=== PATIENT | male | born 1975 | race Caucasian/White ===

== ENCOUNTER 2019-02-14 16:51 | Emergency (ER) | payer OTHER ==
[~2019-02-14] VITALS: Ht 177.8 cm; Wt 88.5 kg
--- OUTSIDE RECORDS SUMMARY | ~2019-02-14 | XMS | Encounter Summary ---
Demographics + + + | Address | [address] | | | [place] [address] | + + + | Home Phone | | + + + | Preferred Language | Unknown | + + + | Marital Status | | + + + | Sikhism Affiliation | Unknown | + + + | Race | White | + + + | Ethnic Group | Not or | + + + Author + + + | Author | [facility] | + + + | Organization | [facility] | + + + | Address | Unknown | + + + | Phone | Unavailable | + + + Support + + +---------+ + | Name | Relationship | Address | Phone | + + +---------+ + | Sadia Harp | ECON | Unknown | | + + +---------+ + Care Team Providers + +------+ + | Care Educational Therapist Name | Role | Phone | + +------+ + | Syed Lombardo MD | PCP | | + +------+ + Encounter Details +--------+ + + + + | Date | Type | Department | Care Team | Description | +--------+ + + + + | 10/13/ | Documentati | Otolaryngology | Otology, Ent 3181 | | | 2016 | on | Otology Services at | [facility] | | | | | PPV [address] [facility] | Road [place], [place] | | | | | [facility] [address] | [address] | | | | | Mailcode: PV01 | | | | | | Physician's Reema | | | | | | [place], [place] | | | | | | [address] | | | | | | [phone] | | | +--------+ + + + [...] filedocumented as of this encounter Visit Diagnoses Not on filedocumented in this encounter"
--- OUTSIDE RECORDS SUMMARY | ~2019-02-14 | XMS | Encounter Summary ---
Demographics + + + | Address | [address] | | | [place] [address] | + + + | Home Phone | | + + + | Preferred Language | Unknown | + + + | Marital Status | | + + + | Mosque Affiliation | Unknown | + + + | Race | White | + + + | Ethnic Group | Not or | + + + Author + + + | Author | [facility] | + + + | Organization | [facility] | + + + | Address | Unknown | + + + | Phone | Unavailable | + + + Support + + +---------+ + | Name | Relationship | Address | Phone | + + +---------+ + | Sadia Harp | ECON | Unknown | | + + +---------+ + Care Team Providers + +------+ + | Care Cake Wringer Name | Role | Phone | + [...] | | | | | JESUS, | [place], [place] | | | | | | [place] [address] | [address] | | | | | | Phone: | Phone: | | | | | | [phone] | [phone] | | | | | | Fax: | Fax: | | | | | | [phone] | [phone] | +--------+--------+ + + + + Encounter [...] | PPV [address] | [facility] | right ear (Primary | | | | [facility] | [place], [place] | Dx) | | | | Mailcode: PV01 | [address] | | | | | Physician's Pavilion | [phone] | | | | | [place], [place] | | | | | | [address] | | | | | | [phone] | | | +--------+---------+ + + + [...] of the num bers below or through [employer]. Your questions can best be answered during business hours at [phone], but you can always reach the [facility] pest control operator at [phone] to contac t our on-call team. We look forward to taking care of you in the future. Dr. Yobany Matthews MD, Director Leslye Escobar, VIDAL Grady MA documented in this encounter Progress Notes Isael Burgess MD - 01/01/2016 10:34 AM PDT Division of Otology, Neurotology, and Skull Base Surgery Department of Otolaryngology/Head and Neck Surgery [facility] Patient: Scotty Harp Referring Provider: Wilfrid Gill [...] him some allergy medications. He saw an arboriculture teacher on 08/18/15 which confirmed he aring loss [...] telephone and finds it difficult to localize [place]. He inquired about usage of Viagra [...] Otolaryngology Head and Neck Surgery PGY5 pager [phone] RESIDENT ATTESTATION This patient was seen in [...] Program Department of Otolaryngology-Head and Neck Surgery [address], [address] [address] tel: [phone] fax: [phone] [email or web address] documented in this encounter Plan of Treatment Not on filedocumented as of this encounter Visit Diagnoses + + | Diagnosis | + + | Sensorineural hearing loss of right ear - Primary | + + documented in this encounter
--- OUTSIDE RECORDS SUMMARY | ~2019-02-14 | XMS | Encounter Summary ---
Demographics + + + | Address | [address] | | | [place] [address] | + + + | Home Phone | | + + + | Preferred Language | Unknown | + + + | Marital Status | | + + + | Sabianism Affiliation | Unknown | + + + [...] Team Providers + +------+ + | Care Laboratory Chemical Assistant Name | Role | Phone | + [...] | | | | | JESUS, | [place], [place] | | | | | | [place] [address] | [address] | | | | | | Phone: | Phone: | | | | | | [phone] | [phone] | | | | | | Fax: | Fax: | | | | | | [phone] | [phone] | +--------+--------+ + + + + Encounter [...] | PPV [address] | [facility] | right ear (Primary | | | | [facility] | [place], [place] | Dx) | | | | Mailcode: PV01 | [address] | | | | | Physician's Pavilion | [phone] | | | | | [place], [place] | | | | | | [address] | | | | | | [phone] | | | +--------+---------+ + + + [...] of the num bers below or through [employer]. Your questions can best be answered during business hours at [phone], but you can always reach the [facility] electrode cleaning machine operator at [phone] to contac t our on-call team. We look forward to taking care of you in the future. Dr. Yobany Matthews MD, Director Leslye Escobar, VIDAL Grady MA documented in this encounter Progress Notes Isael Burgess MD - 01/01/2016 10:34 AM PDT Division of Otology, Neurotology, and Skull Base Surgery Department of Otolaryngology/Head and Neck Surgery [facility] Patient: Scotty Harp Referring Provider: Wilfrid [...] him some allergy medications. He saw an emergency vehicle driver on 08/18/15 which confirmed he aring loss [...] Otolaryngology Head and Neck Surgery PGY5 pager [phone] RESIDENT ATTESTATION This patient was seen in [...] Program Department of Otolaryngology-Head and Neck Surgery [address], [address] [address] tel: [phone] fax: [phone] [email or web address] documented in this encounter Plan of Treatment Not on filedocumented as of this encounter Visit Diagnoses + + | Diagnosis | + + | Sensorineural hearing loss of right ear - Primary | + + documented in this encounter
--- OUTSIDE RECORDS SUMMARY | ~2019-02-14 | XMS | Encounter Summary ---
Demographics + + + | Address | [address] | | | [place] [address] | + + + | Home Phone | | + + + | Preferred Language | Unknown | + + + | Marital Status | | + + + | Pentecostalism Affiliation | Unknown | + + + | Race | White | + + + | Ethnic Group | Not or | + + + Author + + + | Author | [facility] | + + + | Organization | [facility] | + + + | Address | Unknown | + + + | Phone | Unavailable | + + + Support + + +---------+ + | Name | Relationship | Address | Phone | + + +---------+ + | Sadia Harp | ECON | Unknown | | + + +---------+ + Care Team Providers + +------+ + | Care Mechanic Insulator Name | Role | Phone | + [...] W | | | | | | [facility] | | | | | | Road Mailcode: | | | | | | [address] [place] [address] | | | | | | [facility] | | | | | | [place], [place] | | | | | | [address] | | | | | | [phone] | | | +--------+ + + + [...]
--- OUTSIDE RECORDS SUMMARY | ~2019-02-14 | XMS | Encounter Summary ---
Demographics + + + | Address | [address] | | | [place] [address] | + + + | Home Phone | | + + + | Preferred Language | Unknown | + + + | Marital Status | | + + + | Gnosticist Affiliation | Unknown | + + + | Race | White | + + + | Ethnic Group | Not or | + + + Author + + + | Author | [facility] | + + + | Organization | [facility] | + + + | Address | Unknown | + + + | Phone | Unavailable | + + + Support + + +---------+ + | Name | Relationship | Address | Phone | + + +---------+ + | Sadia Harp | ECON | Unknown | | + + +---------+ + Care Team Providers + +------+ + | Care Wafer Production Lead Worker Name | Role | Phone | + [...] Mailcode: | | | | | | [address] [place] [address] | | | | | | [facility] | | | | | | [place], [place] | | | | | | [address] | | | | | | [phone] | | | +--------+ + + + [...]
--- OUTSIDE RECORDS SUMMARY | ~2019-02-14 | XMS | Encounter Summary ---
Demographics + + + | Address | [address] | | | [place] [address] | + + + | Home Phone | | + + + | Preferred Language | Unknown | + + + | Marital Status | | + + + | Oriental Orthodox Affiliation | Unknown | + + + | Race | White | + + + | Ethnic Group | Not or | + + + Author + + + | Author | [facility] | + + + | Organization | [facility] | + + + | Address | Unknown | + + + | Phone | Unavailable | + + + Support + + +---------+ + | Name | Relationship | Address | Phone | + + +---------+ + | Sadia Harp | ECON | Unknown | | + + +---------+ + Care Team Providers + +------+ + | Care Rubber Splicer Name | Role | Phone | + +------+ + | Syed Lombardo MD | PCP | | + +------+ + Encounter Details +--------+ + + + + | Date | Type | Department | Care Team | Description | +--------+ + + + + | 09/23/ | Documentati | Otolaryngology | Otology, Ent 3181 | | | 2015 | on | Otology Services at | [facility] | | | | | [address] [facility] | Road [place], [place] | | | | | [facility] [address] | [address] | | | | | Mailcode: PV01 | | | | | | Physician's Reema | | | | | | [place], [place] | | | | | | [address] | | | | | | [phone] | | | +--------+ + + + [...]
--- OUTSIDE RECORDS SUMMARY | ~2019-02-14 | XMS | Encounter Summary ---
Demographics + + + | Address | [address] | | | [place] [address] | + + + | Home Phone | | + + + | Preferred Language | Unknown | + + + | Marital Status | | + + + | Advent Affiliation | Unknown | + + + | Race | White | + + + | Ethnic Group | Not or | + + + Author + + + | Author | [facility] | + + + | Organization | [facility] | + + + | Address | Unknown | + + + | Phone | Unavailable | + + + Support + + +---------+ + | Name | Relationship | Address | Phone | + + +---------+ + | Sadia Harp | ECON | Unknown | | + + +---------+ + Care Team Providers + +------+ + | Care Processing Analyst Name | Role | Phone | + +------+ + | Syed Lombardo MD | PCP | | + +------+ + Reason for Visit + + + | Reason | Comments | + + + | HL - Hearing loss | | + + + Encounter Details +--------+ + + + + | Date | Type | Department | Care Team | Description | +--------+ + + + + | 12/31/ | Diagnostic | Otolaryngology | Alberta Britton, | HL - Hearing loss | | 2016 | Visit | Audiology Services | [facility] [address] | | | | | at PPV [address] | [facility] | | | | | [facility] | [place], [place] | | | | | Mailcode: PV01 | [address] | | | | | Physician's Reema | [phone] | | | | | [place], [place] | | | | | | [address] | | | | | | [phone] | | | +--------+ + + + [...] + + documented as of this encounter Progress Notes Alberta Gallardo, CCC-A - 01/01/2016 10:[address] [facility] ENT Audiology Clinic NAME: Scotty Harp Date of : 1975 MR#: [id number] Primary Care Provider: Syed Lombardo MD Referral Source: Wilfrid Gill MD [facility] [address] [facility] [address] [place] [address] [place]: Sisters Date of Service: 01/01/2016 OTOLOGY CLINIC Scotty Harp, 40 y.o., was seen for a comprehensive audiological evaluation today as part of Dr. Matthews's otology clinic. Please see same day otology note for case history. Audiologic Results: OTOSCOPY (used to evaluate the outer ear): Right ear: Clear external auditory canal with visible tympanic membrane Left ear: Clear external auditory canal with visible tympanic membrane TYMPANOMETRY (used to evaluate middle ear function): Right ear: Ear canal volume, middle ear pressure and compliance all within normal limits Left ear: Ear canal volume, middle ear pressure and compliance all within normal limits AUDIOMETRY (used to assess condition of hearing): Zelalem hearing sensitivity was evaluated using routine audiometry with insert earphones. Se mendez conditioned easily to the task and his responses were consistent and considered reliable. Pure-tone air and bone conduction results revealed: Right Ear:Normal hearing from 250-500 Hz sloping from a moderate to severe hearing loss f rom 750-8000 Hz. A speech entry level receptionist threshold was obtained at 25 dB HL and is in good agree ment with responses to pure-tone stimuli. Word recognition ability was 40% when words were presented at a comfortable level of 70 dB HL. Left Ear: Normal hearing sensitivity. A speech entry level receptionist threshold was obtained at 5 dB HL and is in good agreement with responses to pure-tone stimuli. Word recognition ability w as 100% when words were presented at a comfortable level of 45 dB HL. Please see SmartForm audiogram for details. Please see otology note for appointment detail including treatment/management and recommend ations. Koby AUGUSTIN, COLEEN-A OTOLARYNGOLOGY AUDIOLOGY SERVICES AT [address] Mailcode: Pv01 [place] [address] documented in this encounter Plan of Treatment Not on filedocumented as of this encounter Procedures + +--------+ + + + | Procedure Name | Priori | Date/Time | Associated Diagnosis | Comments | | | ty | | | | + +--------+ + + + | [place] TYMPANOMETRY | Routin | 01/01/2016 | Sensory hearing | | | | e | 12:49 PM | loss, unilateral | | | | | PDT | | | + +--------+ + + + | [place] COMPREHENSIVE | Routin | 01/01/2016 | Sensory hearing | | | HEARING TEST | e | 12:49 PM | loss, unilateral | | | | | PDT | | | + +--------+ + + + documented in this encounter Visit Diagnoses + + | Diagnosis | + + | Sensory hearing loss, unilateral - Primary | + + documented in this encounter"
--- OUTSIDE RECORDS SUMMARY | ~2019-02-14 | XMS | Encounter Summary ---
Demographics + + + | Address | [address] | | | [place] [address] | + + + | Home Phone | | + + + | Preferred Language | Unknown | + + + | Marital Status | | + + + | Advent Affiliation | Unknown | + + + | Race | White | + + + | Ethnic Group | Not or | + + + Author + + + | Author | [facility] | + + + | Organization | [facility] | + + + | Address | Unknown | + + + | Phone | Unavailable | + + + Support + + +---------+ + | Name | Relationship | Address | Phone | + + +---------+ + | Sadia Harp | ECON | Unknown | | + + +---------+ + Care Team Providers + +------+ + | Care Community Health Nurse Name | Role | Phone | + [...] 2016 | Visit | Audiology Services | [facility] [address] | | | | | at PPV [address] | [facility] | | | | | [facility] | [place], [place] | | | | | Mailcode: PV01 | [address] | | | | | Physician's Reema | [phone] | | | | | [place], [place] | | | | | | [address] | | | | | | [phone] | | | +--------+ + + + [...] Alberta Gallardo, CCC-A - 01/01/2016 10:36 AM [facility] ENT Audiology Clinic NAME: Scotty Harp Date of : 1975 MR#: [id number] Primary Care Provider: Syed Lombardo MD Referral Source: Wilfrid Gill MD [facility] [address] [facility] [address] [place] [address] [place]: Sisters Date of Service: 01/01/2016 OTOLOGY [...] loss f rom 750-8000 Hz. A speech weekend receptionist threshold was obtained at 25 dB HL and is in good agree ment with responses to pure-tone stimuli. Word recognition ability was 40% when words were presented at a comfortable level of 70 dB HL. Left Ear: Normal hearing sensitivity. A speech weekend receptionist threshold was obtained at 5 dB HL and is in good agreement with responses to pure-tone stimuli. Word recognition ability w as 100% when words were presented at a comfortable level of 45 dB HL. Please see SmartForm audiogram for details. Please see otology note for appointment detail including treatment/management and recommend ations. Koby AUGUSTIN, COLEEN-A OTOLARYNGOLOGY AUDIOLOGY SERVICES AT [address] Mailcode: [address] [place] [address] documented in this encounter Plan of Treatment Not on filedocumented as of this encounter Procedures + +--------+ + + + | Procedure Name | Priori | Date/Time | Associated Diagnosis | Comments | | | ty | | | | + +--------+ + + + | [place] TYMPANOMETRY | Routin | 01/01/2016 | Sensory hearing | | | | e | 12:49 PM | loss, unilateral | | | | | PDT | | | + +--------+ + + + | [place] COMPREHENSIVE | Routin | 01/01/2016 | Sensory [...]
--- OUTSIDE RECORDS SUMMARY | ~2019-02-14 | XMS | Encounter Summary ---
Demographics + + + | Address | [address] | | | [place] [address] | + + + | Home Phone | | + + + | Preferred Language | Unknown | + + + | Marital Status | | + + + | Restorationist Affiliation | Unknown | + + + | Race | White | + + + | Ethnic Group | Not or | + + + Author + + + | Author | [facility] | + + + | Organization | [facility] | + + + | Address | Unknown | + + + | Phone | Unavailable | + + + Support + + +---------+ + | Name | Relationship | Address | Phone | + + +---------+ + | Sadia Harp | ECON | Unknown | | + + +---------+ + Care Team Providers + +------+ + | Care Party Director Name | Role | Phone | + [...] | on | Otology Services at | [facility] | | | | | PPV [address] [facility] | Road [place], [place] | | | | | [facility] [address] | [address] | | | | | Mailcode: PV01 | | | | | | Physician's Reema | | | | | | [place], [place] | | | | | | [address] | | | | | | [phone] | | | +--------+ + + + [...]
--- OUTSIDE RECORDS SUMMARY | ~2019-02-14 | XMS | Clinical Summary ---
Demographics + + + | Address | [address] | | | [place] [address] | + + + | Home Phone | | + + + | Preferred Language | Unknown | + + + | Marital Status | | + + + | Catholic Affiliation | Unknown | + + + [...] Team Providers + +------+ + | Care Day Care Attendant Name | Role | Phone | + +------+ + | Syed Lombardo MD | PP | | + +------+ + Source Comments KEESHA is fully live on both [facility] Ambulatory and [facility] InPatient.[facility] Allergies Not on File Medications No known [...] | x | 12-Pre | 8 | [address] | | | | | | sent | | [place], | | | | | | | | [place] | | | | | | | | [address] | | + +--------+ +--------+ + +------+ [...] | 1975 | [phone] | [place] [address] | | | brenda | | | 9 (Home) | | + +--------+ +--------+ + +
--- OUTSIDE RECORDS SUMMARY | ~2019-02-14 | XMS | Clinical Summary ---
Demographics + + + | Address | [address] | | | [place] [address] | + + + | Home Phone | | + + + | Preferred Language | Unknown | + + + | Marital Status | | + + + | Restoration Affiliation | Unknown | + + + [...] Team Providers + +------+ + | Care Die Cleaner Name | Role | Phone | + +------+ + | Syed Lombardo MD | PP | | + +------+ + Source Comments KEESHA is fully live on both [facility] Ambulatory and [facility] InPatient.[facility] Allergies Not on File Medications No [...] | x | 12-Pre | 8 | [address] | | | | | | sent | | [place], | | | | | | | | [place] | | | | | | | | [address] | | + +--------+ +--------+ + +------+ [...] | 1975 | [phone] | [place] [address] | | | brenda | | | 9 (Home) | | + +--------+ +--------+ + +
--- OUTSIDE RECORDS SUMMARY | ~2019-02-14 | XMS | Encounter Summary ---
Demographics + + + | Address | [address] | | | [place] [address] | + + + | Home Phone | | + + + | Preferred Language | Unknown | + + + | Marital Status | | + + + | Taoism Affiliation | Unknown | + + + | Race | White | + + + | Ethnic Group | Not or | + + + Author + + + | Author | [facility] | + + + | Organization | [facility] | + + + | Address | Unknown | + + + | Phone | Unavailable | + + + Support + + +---------+ + | Name | Relationship | Address | Phone | + + +---------+ + | Sadia Harp | ECON | Unknown | | + + +---------+ + Care Team Providers + +------+ + | Care Business Support Associate Name | Role | Phone | + [...] | | | PPV [address] [facility] | Road [place], [place] | | | | | [facility] [address] | [address] | | | | | Mailcode: PV01 | | | | | | Physician's Reema | | | | | | [place], [place] | | | | | | [address] | | | | | | [phone] | | | +--------+ + + + [...]
[2019-02-14] MEDS ORDERED: GLUCOSAMINE1000 MG PO (17:06)
[2019-02-14] MEDS ORDERED: MULTIVITAMINS1 EAC8 PO (17:07)
[2019-02-14] MEDS ORDERED: HYDROCODON-ACE1 EA10 PO (17:56)
[2019-02-14] MEDS ORDERED: KEFLEX500 MG PO (17:56)
[2019-02-14] MEDS ORDERED: IBUPROFEN600 MG PO (17:56)
== END 2019-02-14 18:09 | disposition home or self-care (01) ==
LOC: ED 16:51
PROC: 0XQPXZZ Repair Left Index Finger, External Approach (ICD-10-PCS; principal; 2019-02-14)
DX: S62.631B Displaced fracture of distal phalanx of left index finger, initial encounter for open fracture (principal); S61.311A Laceration without foreign body of left index finger with damage to nail, initial encounter; W23.0XXA Caught, crushed, jammed, or pinched between moving objects, initial encounter
CPT/HCPCS: 12001; 73140; 90471; 90715; 99283-25

== ENCOUNTER 2019-02-16 11:09 | Emergency (ER) | payer OTHER, BC ==
[~2019-02-16] VITALS: Ht 177.8 cm; Wt 88.5 kg
--- OUTSIDE RECORDS SUMMARY | ~2019-02-16 | XMS | Encounter Summary ---
Demographics + + + | Address | [address] | | | [place] [address] | + + + | Home Phone | | + + + | Preferred Language | Unknown | + + + | Marital Status | | + + + | Yazidism Affiliation | Unknown | + + + | Race | White | + + + | Ethnic Group | Not or | + + + Author + + + | Author | [facility] | + + + | Organization | [facility] | + + + | Address | Unknown | + + + | Phone | Unavailable | + + + Support + + +---------+ + | Name | Relationship | Address | Phone | + + +---------+ + | Sadia Harp | ECON | Unknown | | + + +---------+ + Care Team Providers + +------+ + | Care Burr Mill Operator Name | Role | Phone | + +------+ + | Syed Lombardo MD | PCP | | + +------+ + Reason for Visit + + + | Reason | Comments | + + + | Tinnitus | new pt here for tinnitus eval | + + + Consultation (Routine) +--------+--------+ + + + + | Status | Reason | Specialty | Diagnoses / | Referred By | Referred To | | | | | Procedures | Contact | Contact | +--------+--------+ + + + + | Closed | | Otolaryngolog | Diagnoses | Flaiz, | Ent Otology | | | | y | Right side | Wilfrid A, | [address] | | | | | tinnitus - | | [address] | | | | | page 1 of | [place] [address] | | | | | referral | HEAD & NECK | Mailcode: | | | | | Procedures | CLIN[facility] | [address] | | | | | CONSULT TO | [address] | Physician's | | | | | ENT OTOLOGY | [address] | Pavilion | | | | | | [place], | [place], [place] | | | | | | [place] [address] | [address] | | | | | | Phone: | Phone: | | | | | | [phone] | [phone] | | | | | | Fax: | Fax: | | | | | | [phone] | [phone] | +--------+--------+ + + + + Encounter Details +--------+---------+ + + + | Date | Type | Department | Care Team | Description | +--------+---------+ + + + | 12/31/ | Office | Otolaryngology | Alden Matthews Criss, | Sensorineural | | 2016 | Visit | Otology Services at | [address] | hearing loss of | | | | [facility] [address] | [facility] | right ear (Primary | | | | [facility] | [place], [place] | Dx) | | | | Mailcode: PV01 | [address] | | | | | [facility] | [phone] | | | | | [place], [place] | | | | | | [address] | | | | | | [phone] | | | +--------+---------+ + + + Social History + +-------+ +--------+------+ | Tobacco Use | Types | Packs/Day | Years | Date | | | | | Used | | + +-------+ +--------+------+ | Never Smoker | | | | | + +-------+ +--------+------+ + +---+---+---+ | Smokeless Tobacco: | | | | | Never Used | | | | + +---+---+---+ + + +---------+ + | Alcohol Use | Drinks/Week | oz/Week | Comments | + + +---------+ + | Not Asked | 0 Standard drinks | 0.0 | | | | or equivalent | | | + + +---------+ + + + + | Sex Assigned at | Date Recorded | | | | + + + | Not on file | | + + + + + + + | Job Start Date | Occupation | Industry | + + + + | Not on file | Not on file | Not on file | + + + + + + + + | Travel History | Travel Start | Travel End | + + + + + + | No recent travel history available. | + + documented as of this encounter Last Filed Vital Signs + + + + + | Vital Sign | Reading | Time Taken | Comments | + + + + + | Blood Pressure | 120/74 | 01/01/2016 10:30 AM | | | | | PDT | | + + + + + | Pulse | 65 | 01/01/2016 10:30 AM | | | | | PDT | | + + + + + | Temperature | - | - | | + + + + + | Respiratory Rate | - | - | | + + + + + | Oxygen Saturation | - | - | | + + + + + | Inhaled Oxygen | - | - | | | Concentration | | | | + + + + + | Weight | 84.8 kg (187 lb) | 01/01/2016 10:30 AM | | | | | PDT | | + + + + + | Height | 177.8 cm (5' 10") | 01/01/2016 10:30 AM | | | | | PDT | | + + + + + | Body Mass Index | 26.83 | 01/01/2016 10:30 AM | | | | | PDT | | + + + + + documented in this encounter Patient Instructions Patient Instructions Isael Burgess MD - 01/01/2016 11:09 AM PDTYou had a sensorineural hea ring loss on the right side. Your hearing may improve but likely this is going to stabilize. There is no tumor of your 8th nerve on MRI. We have ordered some lab testing to see any particular cause of your hearing loss. We recommend evaluation by audiology to discuss hearing aids 1) traditional right hearing aid 2) CROS hearing aids in both ears Thank you so much for seeking care in the Division of Otology, Neurotology, and Skull Base Surgery. We hope we have been able to help you. If you have any questions about your care, please feel free to contact us at one of the num bers below or through [employer]. Your questions can best be answered during business hours at [phone], but you can always reach the [facility] screw machine set up operator at [phone] to contac t our on-call team. We look forward to taking care of you in the future. Dr. Yobany Matthews MD, Director Leslye Escobar, VIDAL Grady MA documented in this encounter Progress Notes Isael Burgess MD - 01/01/2016 10:34 AM PDT Division of Otology, Neurotology, and Skull Base Surgery Department of Otolaryngology/Head and Neck Surgery [facility] Patient: Scotty Harp Referring Provider: Wilfrid Gill MD Author: Isael Burgess MD Consultation Date: 01/01/2016 REASON FOR VISIT: Right sudden sensorineural hearing loss HISTORY OF PRESENT ILLNESS: Scotty Harp is a 40 y.o. male who was referred to the Otology - Neurotology clinic by Dr. Gill for right sudden sensorineural hearing loss that occurred on 08/10/15. There was a po pping sound accompanied by aural fullness and continuous ringing tinnitus and severe vertigo . He heard some crackling noises and then his hearing as completely gone. His PCP 08/12/15 p rescribed him some allergy medications. He saw an manager customer service on 08/18/15 which confirmed he aring loss and told him to go back to PCP and get ENT referral and prednisone taper. He was treated with prednisone 30 mg on 08/19/15 x 5 days without any significant improvement. He was then seen by an ENT clinic (Ms. Jo RYAN) on 09/09/15 with repeat audio who ordered an d MRI and treated him with another round of prednisone (50 mg taper over 10 days) without an y more than minor subjective improvement. Audiogram was improved - SDS of 20% in right ear a nd improvement of 20-30 dB but still in moderate to severe level. Vertigo has since resolved . He currently uses his left ear to use the telephone and finds it difficult to localize holley nd. He inquired about usage of Viagra as a source of hearing loss but had not used it within a few weeks of losing his hearing. Otologic history: Has no had prior otologic surgery. (no) family history of hearing loss. (no) history of ototoxic medication use. (+) history of noise exposure. Loud equipment but wears hearing protection (-) history of head trauma. PAST MEDICAL HISTORY: History reviewed. No pertinent past medical history. PAST SURGICAL HISTORY: History reviewed. No pertinent past surgical history. ALLERGIES: Not on File MEDICATIONS: No current outpatient prescriptions on file. FAMILY HISTORY: None SOCIAL HISTORY: History Substance Use Topics Smoking status: Never Smoker Smokeless tobacco: Never Used Alcohol Use: Not on file REVIEW OF SYSTEMS: A full 10 point review of systems was completed and is negative, except for the pertinent p ositives and negatives as noted above in the history of present illness. PHYSICAL EXAM: Vitals: Ht 1.778 m (5' 10"), Wt 84.823 kg (187 lb), BP 120/74, Pulse 65, BMI 26.83 kg/(m^2) . Constitutional: Non-toxic, no apparent distress. Face: Normal facial contour. Eyes: Extraocular movements intact. Sclera non-icteric. Ears: Examined under binocular microscopic visualization. Left: Normal external auditory canal and drum. Normal aerated middle ear. Right: Normal external auditory canal and drum. Normal aerated middle ear. Nose: No external nasal deformity. Oral Cavity: Tongue and palate mobility normal. No mucosal lesions noted on hard palate, u pper or lower alveolous, buccal mucosa, floor of mouth, lips or tongue. Oropharynx: Tonsillar fossae normal. Neck: No adenopathy or masses. Normal range of motion. Respiratory: Unlabored. No cyanosis. Cardiovascular: Normal perfusion. No edema. Skin: No suspicious skin lesions noted on scalp, face, ears, or neck. Neuro: Normal gait. Cranial nerves: II, III, IV, : Normal range of movement. No nystagmus. VII: No facial weakness. VIII: Cerna left with 1024 Hz tuning fork, Cerna midline with 512 Hz tuning fork and 256 H z tuning fork. Rinne bilaterally air greater than bone for all tested frequencies. Normal head thrust. Normal Romberg. X: Voice grossly normal. XI: Shoulder motion normal. XII: Tongue motion normal. Psychiatric: Alert and oriented. Normal affect. IMAGING: MRI report from 09/14/15 reviewed and interpreted by me indicates normal appearing IAC and nerves bilaterally. 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 AUDIOGRAM: Audiogram from 01/01/16 reviewed and interpreted by me indicates right severe high frequency sensorineural hearing loss. Left normal hearing. Type A tymps. WRS 40% at 70 HL in right ear and 100% at 45 HL in the left ear. Improvement in WRS from prior audio performed Aug 2015. ASSESSMENT: Right sensorineural hearing loss of unknown etiology. Left normal hearing. Residual right s ided tinnitus. Vertigo has resolved. PLAN: - will obtain lab tests for etiology ( FTA-ABS, CRP, ESR, anti-cardiolipin AB) sent as exte rnal order - discussed hearing rehabilitation with traditional right sided hearing aid versus a CROS h earing aid bilaterally - he will think about his options and follow up as needed ISAEL BURGESS MD Otolaryngology Head and Neck Surgery PGY5 pager [phone] RESIDENT ATTESTATION This patient was seen in conjunction with a resident. I personally interviewed the patient , duplicated the pertinent parts of the physical examination and procedure, and personally f ormulated the plan. I have reviewed, entered my findings, and agree with the resident's docu mentation. Alden Matthews MD Director, Division of Otology, Neurotology, and Skull Base Surgery Director, Cochlear Implant Program Department of Otolaryngology-Head and Neck Surgery [address], [address] [address] tel: [phone] fax: [phone] [email or web address] documented in this encounter Plan of Treatment Not on filedocumented as of this encounter Visit Diagnoses + + | Diagnosis | + + | Sensorineural hearing loss of right ear - Primary | + + documented in this encounter
--- OUTSIDE RECORDS SUMMARY | ~2019-02-16 | XMS | Encounter Summary ---
Demographics + + + | Address | [address] | | | [place] [address] | + + + | Home Phone | | + + + | Preferred Language | Unknown | + + + | Marital Status | | + + + | Adventism Affiliation | Unknown | + + + | Race | White | + + + | Ethnic Group | Not or | + + + Author + + + | Author | [facility] | + + + | Organization | [facility] | + + + | Address | Unknown | + + + | Phone | Unavailable | + + + Support + + +---------+ + | Name | Relationship | Address | Phone | + + +---------+ + | Sadia Harp | ECON | Unknown | | + + +---------+ + Care Team Providers + +------+ + | Care Operations Research Scientist Name | Role | Phone | + +------+ + PCP | Unavailable | + +------+ + Encounter Details +--------+ + + + + | Date | Type | Department | Care Team | Description | +--------+ + + + + | 09/14/ | Document-Sc | Health Information | Unknown . | | | 2014 | anned | Services [address] | | | | | | [facility] | | | | | | Road Mailcode: | | | | | | [address] [place] [address] | | | | | | [facility] | | | | | | [place], [place] | | | | | | [address] | | | | | | [phone] | | | +--------+ + + + + Social History + +-------+ +--------+------+ | Tobacco Use | Types | Packs/Day | Years | Date | | | | | Used | | + +-------+ +--------+------+ | Never Assessed | | | | | + +-------+ +--------+------+ + + + | Sex Assigned at [...] + + documented as of this encounter Plan of Treatment Not on filedocumented as of this encounter Procedures + +--------+ + + + | Procedure Name | Priori | Date/Time | Associated Diagnosis | Comments | | | ty | | | | + +--------+ + + + | RADIOLOGY | | 09/14/2015 | | Results for this | | | | 12:00 AM | | procedure are in the | | | | PST | | results section. | + +--------+ + + + documented in this encounter Results RADIOLOGY (09/14/2015 12:00 AM PST) + + + | Narrative | Performed At | + + + | | | + + + documented in this encounter Visit Diagnoses Not on filedocumented in this encounter"
--- OUTSIDE RECORDS SUMMARY | ~2019-02-16 | XMS | Encounter Summary ---
Demographics + + + | Address | [address] | | | [place] [address] | + + + | Home Phone | | + + + | Preferred Language | Unknown | + + + | Marital Status | | + + + | Mormonism Affiliation | Unknown | + + + | Race | White | + + + | Ethnic Group | Not or | + + + Author + + + | Author | [facility] | + + + | Organization | [facility] | + + + | Address | Unknown | + + + | Phone | Unavailable | + + + Support + + +---------+ + | Name | Relationship | Address | Phone | + + +---------+ + | Sadia Harp | ECON | Unknown | | + + +---------+ + Care Team Providers + +------+ + | Care Shipyard Laborer Name | Role | Phone | + [...] [address] | | | | | | [facility] | | | | | | Road Mailcode: | | | | | | [address] [place] [address] | | | | | | [facility] | | | | | | [place], [place] | | | | | | [address] | | | | | | [phone] | | | +--------+ + + + [...]
--- OUTSIDE RECORDS SUMMARY | ~2019-02-16 | XMS | Encounter Summary ---
Demographics + + + | Address | [address] | | | [place] [address] | + + + | Home Phone | | + + + | Preferred Language | Unknown | + + + | Marital Status | | + + + | Mandaeism Affiliation | Unknown | + + + | Race | White | + + + | Ethnic Group | Not or | + + + Author + + + | Author | [facility] | + + + | Organization | [facility] | + + + | Address | Unknown | + + + | Phone | Unavailable | + + + Support + + +---------+ + | Name | Relationship | Address | Phone | + + +---------+ + | Sadia Harp | ECON | Unknown | | + + +---------+ + Care Team Providers + +------+ + | Care Android Software Engineer Name | Role | Phone | + [...] | | | | | [place], | [place], [place] | | | | | | [place] [address] | [address] | | | | | | Phone: | Phone: | | | | | | [phone] | [phone] | | | | | | Fax: | Fax: | | | | | | [phone] | [phone] | +--------+--------+ + + + + Encounter [...] | [facility] [address] | [facility] | right ear (Primary | | | | [facility] | [place], [place] | Dx) | | | | Mailcode: [address]01 | [address] | | | | | [facility] | [phone] | | | | | [place], [place] | | | | | | [address] | | | | | | [phone] | | | +--------+---------+ + + + [...] of the num bers below or through [employer]. Your questions can best be answered during business hours at [phone], but you can always reach the [facility] loom operator apprentice at [phone] to contac t our on-call team. We look forward to taking care of you in the future. Dr. Yobany Matthews MD, Director Leslye Escobar, VIDAL Grady MA documented in this encounter Progress Notes Isael Burgess MD - 01/01/2016 10:34 AM PDT Division of Otology, Neurotology, and Skull Base Surgery Department of Otolaryngology/Head and Neck Surgery [facility] Patient: Scotty Harp Referring Provider: Wilfrid Gill [...] him some allergy medications. He saw an secondary set up man on 08/18/15 which confirmed he aring loss [...] Otolaryngology Head and Neck Surgery PGY5 pager [phone] RESIDENT ATTESTATION This patient was seen in [...] Program Department of Otolaryngology-Head and Neck Surgery [address], [address] [address] tel: [phone] fax: [phone] [email or web address] documented in this encounter Plan of Treatment Not on filedocumented as of this encounter Visit Diagnoses + + | Diagnosis | + + | Sensorineural hearing loss of right ear - Primary | + + documented in this encounter
--- OUTSIDE RECORDS SUMMARY | ~2019-02-16 | XMS | Clinical Summary ---
Demographics + + + | Address | [address] | | | [place] [address] | + + + | Home Phone | | + + + | Preferred Language | Unknown | + + + | Marital Status | | + + + | Taoist Affiliation | Unknown | + + + | Race | White | + + + | Ethnic Group | Not or | + + + Author + + + | Author | [facility] | + + + | Organization | [facility] | + + + | Address | Unknown | + + + | Phone | Unavailable | + + + Support + + +---------+ + | Name | Relationship | Address | Phone | + + +---------+ + | Sadia Harp | ECON | Unknown | | + + +---------+ + Care Team Providers + +------+ + | Care Social Media Sr Strategy Manager Name | Role | Phone | + +------+ + | Syed Lombardo MD | PP | | + +------+ + Source Comments KEESHA is fully live on both [facility] Ambulatory and [facility] InPatient.[facility] Allergies Not on File Medications No known medications Active Problems No known active problems Social History + +-------+ +--------+------+ | Tobacco [...] recent travel history available. | + + Last Filed Vital Signs + + + [...] | | + + + + + Plan of Treatment + + + + + | Health Maintenance | Due Date | Last Done | Comments | + + + + + | Influenza (Flu) | | | | | vaccination (Season | 9 | | | | Ended) | | | | + + + + + Results Not on filefrom Last 3 Months Insurance + +--------+ +--------+ + +------+ | Payer | Benefi | Subscriber | Effect | Phone | Address | Type | | | t Plan | ID | teetee | | | | | | / | | Dates | | | | | | Group | | | | | | + +--------+ +--------+ + +------+ | BLUE CROSS BLUE | REGENC | [id number] | 02/24/20 | [phone] | [address] | PPO | | SHIELD | E [employer] | x | 12-Pre | 8 | [id number] | | | | | | sent | | [place], | | | | | | | | [place] | | | | | | | | [address] | | + +--------+ +--------+ + +------+ + +--------+ +--------+ + + | Guarantor Name | Accoun | Relation to | Date | Phone | Billing Address | | | t Type | Patient | of | | | | | | | | | | + +--------+ +--------+ + + | Scotty Harp | Person | Self [birth year] | [address] | | | linda/[place] | | 1975 | [phone] | [place] [address] | | | brenda | | | [address] (Home) | | + +--------+ +--------+ + +
--- OUTSIDE RECORDS SUMMARY | ~2019-02-16 | XMS | Encounter Summary ---
Demographics + + + | Address | [address] | | | [place] [address] | + + + | Home Phone | | + + + | Preferred Language | Unknown | + + + | Marital Status | | + + + | Sikhism Affiliation | Unknown | + + + | Race | White | + + + | Ethnic Group | Not or | + + + Author + + + | Author | [facility] | + + + | Organization | [facility] | + + + | Address | Unknown | + + + | Phone | Unavailable | + + + Support + + +---------+ + | Name | Relationship | Address | Phone | + + +---------+ + | Sadia Harp | ECON | Unknown | | + + +---------+ + Care Team Providers + +------+ + | Care Granulator Machine Operator Name | Role | Phone | [...] | on | Otology Services at | [facility] | | | | | [facility] [address] [facility] | Road [place], [place] | | | | | [facility] [address] | [address] | | | | | Mailcode: [address] | | | | | | [facility] | | | | | | [place], [place] | | | | | | [address] | | | | | | [phone] | | | +--------+ + + + [...]
--- OUTSIDE RECORDS SUMMARY | ~2019-02-16 | XMS | Encounter Summary ---
Demographics + + + | Address | [address] | | | [place] [address] | + + + | Home Phone [...] + + + | Author | [facility] | + + + | Organization | [facility] | + + + | Address | Unknown | + + + | Phone | Unavailable | + + + Support + + +---------+ + | Name | Relationship | Address | Phone | + + +---------+ + | Sadia Harp | ECON | Unknown | | + + +---------+ + Care Team Providers + +------+ + | Care Petroleum Production Engineer Name | Role | Phone | [...] 2016 | Visit | Audiology Services | [facility] [address] | | | | | at [facility] [address] | [facility] | | | | | [facility] | [place], [place] | | | | | Mailcode: [address] | [address] | | | | | [facility] | [phone] | | | | | [place], [place] | | | | | | [address] | | | | | | [phone] | | | +--------+ + + + [...] Alberta Gallardo, CCC-A - 01/01/2016 10:36 AM [facility] ENT Audiology Clinic NAME: Scotty Harp Date of : 1975 MR#: [id number] Primary Care Provider: Syed Lombardo MD Referral Source: Wilfrid Gill MD [facility] [address] [facility] [address] [place] [address] [place]: Sisters Date of Service: 01/01/2016 OTOLOGY [...] loss f rom 750-8000 Hz. A speech office receptionist threshold was obtained at 25 dB HL and is in good agree ment with responses to pure-tone stimuli. Word recognition ability was 40% when words were presented at a comfortable level of 70 dB HL. Left Ear: Normal hearing sensitivity. A speech office receptionist threshold was obtained at 5 dB HL and is in good agreement with responses to pure-tone stimuli. Word recognition ability w as 100% when words were presented at a comfortable level of 45 dB HL. Please see SmartForm audiogram for details. Please see otology note for appointment detail including treatment/management and recommend ations. Koby AUGUSTIN, COLEEN-A OTOLARYNGOLOGY AUDIOLOGY SERVICES AT [address] Mailcode: [address] [place] [address] documented in this encounter Plan of Treatment Not on filedocumented as of this encounter Procedures + +--------+ + + + | Procedure Name | Priori | Date/Time | Associated Diagnosis | Comments | | | ty | | | | + +--------+ + + + | NV TYMPANOMETRY | Routin | 01/01/2016 | Sensory hearing | | | | e | 12:49 PM | loss, unilateral | | | | | PDT | | | + +--------+ + + + | NV COMPREHENSIVE | Routin | 01/01/2016 | Sensory [...]
--- OUTSIDE RECORDS SUMMARY | ~2019-02-16 | XMS | Encounter Summary ---
Demographics + + + | Address | [address] | | | [place] [address] | + + + | Home Phone | | + + + | Preferred Language | Unknown | + + + | Marital Status | | + + + | Buddhism Affiliation | Unknown | + + + | Race | White | + + + | Ethnic Group | Not or | + + + Author + + + | Author | [facility] | + + + | Organization | [facility] | + + + | Address | Unknown | + + + | Phone | Unavailable | + + + Support + + +---------+ + | Name | Relationship | Address | Phone | + + +---------+ + | Sadia Harp | ECON | Unknown | | + + +---------+ + Care Team Providers + +------+ + | Care Clinical Studies Specialist Name | Role | Phone | + [...] | on | Otology Services at | [facility] | | | | | [facility] [address] [facility] | Road [place], [place] | | | | | [facility] [address] | [address] | | | | | Mailcode: [address] | | | | | | [facility] | | | | | | [place], [place] | | | | | | [address] | | | | | | [phone] | | | +--------+ + + + [...]
--- OUTSIDE RECORDS SUMMARY | ~2019-02-16 | XMS | Encounter Summary ---
Demographics + + + | Address | [address] | | | [place] [address] | + + + | Home Phone | | + + + | Preferred Language | Unknown | + + + | Marital Status | | + + + | Lutheran Affiliation | Unknown | + + + | Race | White | + + + | Ethnic Group | Not or | + + + Author + + + | Author | [facility] | + + + | Organization | [facility] | + + + | Address | Unknown | + + + | Phone | Unavailable | + + + Support + + +---------+ + | Name | Relationship | Address | Phone | + + +---------+ + | Sadia Harp | ECON | Unknown | | + + +---------+ + Care Team Providers + +------+ + | Care Corn Cutter Name | Role | Phone | + [...] | 12/31/ | Diagnostic | Otolaryngology | Albreta Britton, | HL - Hearing loss | | 2016 | Visit | Audiology Services | [facility] [address] | | | | | at [facility] [address] | [facility] | | | | | [facility] | [place], [place] | | | | | Mailcode: [id number] | [address] | | | | | Physician's Reema | [phone] | | | | | [place], [place] | | | | | | [address] | | | | | | [phone] | | | +--------+ + + + [...] Alberta Gallardo, CCC-A - 01/01/2016 10:36 AM [facility] NAME: Scotty Harp Date of : 1975 MR#: [id number] Primary Care Provider: Syed Lombardo MD Referral Source: Wilfrid Gill MD [facility] [address] [facility] [address] [place] [id number] [address]: Sisters Date of Service: 01/01/2016 OTOLOGY [...] loss f rom 750-8000 Hz. A speech law firm receptionist threshold was obtained at 25 dB HL and is in good agree ment with responses to pure-tone stimuli. Word recognition ability was 40% when words were presented at a comfortable level of 70 dB HL. Left Ear: Normal hearing sensitivity. A speech law firm receptionist threshold was obtained at 5 dB HL and is in good agreement with responses to pure-tone stimuli. Word recognition ability w as 100% when words were presented at a comfortable level of 45 dB HL. Please see SmartForm audiogram for details. Please see otology note for appointment detail including treatment/management and recommend ations. Koby AUGUSTIN, COLEEN-A OTOLARYNGOLOGY AUDIOLOGY SERVICES AT [address] Mailcode: [id number] [place] [address] documented in this encounter Plan of Treatment Not on filedocumented as of this encounter Procedures + +--------+ + + + | Procedure Name | Priori | Date/Time | Associated Diagnosis | Comments | | | ty | | | | + +--------+ + + + | [place] TYMPANOMETRY | Routin | 01/01/2016 | Sensory hearing | | | | e | 12:49 PM | loss, unilateral | | | | | PDT | | | + +--------+ + + + | [place] COMPREHENSIVE | Routin | 01/01/2016 | Sensory [...]
--- OUTSIDE RECORDS SUMMARY | ~2019-02-16 | XMS | Encounter Summary ---
Demographics + + + | Address | [address] | | | [place] [address] | + + + | Home Phone | | + + + | Preferred Language | Unknown | + + + | Marital Status | | + + + | Scientologist Affiliation | Unknown | + + + | Race | White | + + + | Ethnic Group | Not or | + + + Author + + + | Author | [facility] | + + + | Organization | [facility] | + + + | Address | Unknown | + + + | Phone | Unavailable | + + + Support + + +---------+ + | Name | Relationship | Address | Phone | + + +---------+ + | Sadia Harp | ECON | Unknown | | + + +---------+ + Care Team Providers + +------+ + | Care Ferry Operator Name | Role | Phone | [...] | on | Otology Services at | [facility] | | | | | [facility] [address] [facility] | Road [place], [place] | | | | | [address] [facility] [address] | [address] | | | | | Mailcode: [address] | | | | | | Physician's Reema | | | | | | [place], [place] | | | | | | [address] | | | | | | [phone] | | | +--------+ + + + [...]
--- OUTSIDE RECORDS SUMMARY | ~2019-02-16 | XMS | Clinical Summary ---
Demographics + + + | Address | [address] | | | [place] [address] | + + + | Home Phone | | + + + | Preferred Language | Unknown | + + + | Marital Status | | + + + | Yazdanism Affiliation | Unknown | + + + [...] Providers + +------+ + | Care Die Mounter Name | Role | Phone | + +------+ + | Syed Lombardo MD | PP | | + +------+ + Source Comments KEESHA is fully live on both [facility] and [facility] Allergies Not on File Medications No [...] | x | 12-Pre | 8 | [id number] | | | | | | sent | | [place], | | | | | | | | [place] | | | | | | | | [address] | | + +--------+ +--------+ + +------+ [...] | 1975 | [phone] | [place] [address] | | | brenda | | | 9 (Home) | | + +--------+ +--------+ + +
--- OUTSIDE RECORDS SUMMARY | ~2019-02-16 | XMS | Encounter Summary ---
Demographics + + + | Address | [address] | | | [place] [address] | + + + | Home Phone | | + + + | Preferred Language | Unknown | + + + | Marital Status | | + + + | Orthodox Affiliation | Unknown | + + + | Race | White | + + + | Ethnic Group | Not or | + + + Author + + + | Author | [facility] | + + + | Organization | [facility] | + + + | Address | Unknown | + + + | Phone | Unavailable | + + + Support + + +---------+ + | Name | Relationship | Address | Phone | + + +---------+ + | Sadia Harp | ECON | Unknown | | + + +---------+ + Care Team Providers + +------+ + | Care Calender Roll Operator Name | Role | Phone | [...] on | Otology Services at | [facility] | | | | | [facility] [address] [facility] | Road [place], [place] | | | | | [address] [facility] [address] | [address] | | | | | Mailcode: [address] | | | | | | Physician's Reema | | | | | | [place], [place] | | | | | | [address] | | | | | | [phone] | | | +--------+ + + + [...]
[~2019-02-16 11:09] MED LIST: GLUCOSAMINE1000 MG PO; HYDROCODON-ACE1 EA10 PO; IBUPROFEN600 MG PO; KEFLEX500 MG PO; MULTIVITAMINS1 EAC8 PO
--- OUTSIDE RECORDS SUMMARY | 2019-02-16 11:12 | XMS ---
PreManage Notification: ELISSA KENDALL Security Medical Records Field Technician Events No recent Security Events currently on file CRITERIA MET - [facility] - 2 Visits in 30 Days CARE PROVIDERS SHIV LOMBARDO [facility] Current PHONE: Unknown Shiv Lombardo Current [place] PHONE: Unknown Luna has no Care Guidelines for this patient. Geoffrey VISIT COUNT (12 MO.) 2 [facility] TOTAL 2 NOTE: Visits indicate total known visits. ED/UCC VISIT TRACKING (12 MO.) 02/16/2019 11:09 [facility] [place] TYPE: Emergency COMPLAINT: - WOUND CHECK 02/14/2019 16:51 [facility] [place] TYPE: Emergency COMPLAINT: - LEFT INDEX FINGER INJURY INPATIENT VISIT TRACKING (12 MO.) No inpatient visits to display in this time frame [id number]
== END 2019-02-16 12:15 | disposition home or self-care (01) ==
LOC: ED 11:09
DX: S61.211D Laceration without foreign body of left index finger without damage to nail, subsequent encounter (principal)
CPT/HCPCS: 99282

== ENCOUNTER 2025-09-01 06:58 | Day surgery (SDC) | payer OTHER ==
[~2025-09-01] VITALS: Ht 177.8 cm; Wt 84.0 kg
[~2025-09-01 06:58] MED LIST changes: +CALCIUM500 MG PO; +CIALIS5 MG PO; +LACTATED RINGER'S 1,000 ML IV SCH; +LIPITOR40 MG PO
[2025-09-01] MEDS ORDERED: LIDOCAINE HCL 1% 5 ML SDV INJ ONE (07:00)
[2025-09-01] MEDS ORDERED: DULOXETINE HCL 60 MG CAP PO SCH (07:00)
[2025-09-01] MEDS ORDERED: TRANEXAMIC ACID IN NACL,ISO-OS 1,000 MG/100 ML PIGGYBACK IV SCH ×3 (07:00→13:21)
[2025-09-01] MEDS ORDERED: CEFAZOLIN SODIUM 2 GM in SODIUM CHLORIDE 0.9% 100 ML IV SCH ×2 (07:00→17:00)
[2025-09-01] MEDS ORDERED: INTRA-ARTICULAR ANALGESIC INJECTION XX SCH (07:00)
[2025-09-01] MEDS ORDERED: IBLOOD GLUCOSE TEST STRIP 1 EA TEST VI PRN ×2 (07:00→09:45)
[2025-09-01] MEDS ORDERED: PANTOPRAZOLE SODIUM 40 MG TABEC PO SCH (07:00)
[2025-09-01] MEDS ORDERED: OXYCODONE HCL 5 MG TAB PO SCH (07:00)
[2025-09-01 07:16] VITALS: BP 120/70
[2025-09-01] MEDS ORDERED: MIDAZOLAM HCL 2 MG/2 ML VIAL ONE (07:48)
[2025-09-01] MEDS ORDERED: BUPIVACAINE 0.75% IN DEXTROSE 2 ML AMP ONE (08:38)
[2025-09-01] MEDS ORDERED: OXYCODONE HCL 5 MG TAB PO PRN (09:00)
[2025-09-01] MEDS ORDERED: LIDOCAINE HCL 2% 5 ML SDV ONE (09:17)
[2025-09-01] MEDS ORDERED: ACETAMINOPHEN 1,000 MG/100 ML VIAL ONE (09:44)
[2025-09-01] MEDS ORDERED: KETOROLAC TROMETHAMINE 30 MG/ML VIAL ONE (09:44)
[2025-09-01] MEDS ORDERED: NALOXONE HCL 0.4 MG SYR IV PRN (09:45)
[2025-09-01] MEDS ORDERED: HYDROmorphone HCL 1 MG/ML SYR IV PRN (09:45)
[2025-09-01] MEDS ORDERED: fentaNYL citrate 50 MCG/ML SDV IV PRN (09:45)
[2025-09-01] MEDS ORDERED: PROCHLORPERAZINE EDISYLATE 10 MG/2 ML VIAL IV PRN (09:45)
[2025-09-01] MEDS ORDERED: TRANEXAMIC ACID 1,000 MG/10 ML AMP ONE (10:20)
[2025-09-01] MEDS ORDERED: LACTATED RINGER'S 1,000 ML IV ONE (10:21)
[2025-09-01] MEDS ORDERED: DICLOFENAC SODI75 MG PO (10:46)
[2025-09-01] MEDS ORDERED: ASPIRIN325 MG PO (10:46)
[2025-09-01] MEDS ORDERED: SENNA LAX8.6 MG PO (10:47)
[2025-09-01] MEDS ORDERED: ACETAMINOPHEN500 MG PO (10:47)
[2025-09-01] MEDS ORDERED: OXYCODONE HCL5 M1 PO (10:47)
[2025-09-01] MEDS ORDERED: fentaNYL citrate 100 MCG/2 ML VIAL ONE (10:49)
[2025-09-01] MEDS ORDERED: TRANEXAMIC ACI650 MG PO (10:52)
[2025-09-01 11:37] VITALS: BP 118/58
--- NOTE | 2025-09-01 11:40 | NUR ---
PT ARRIVES BACK TO ROOM. PT REPORTS PAIN PILL STARTING TO KICK IN AND PT "FEELS MARC GROGGY". VS TAKEN, WNL. PT STATES NO NAUSEA OR INSTABILITY FELT. DC EDUCATION PROVIDED TO PT AND PT . BOTH STATE VERBAL UNDERSTANDING AT THIS TIME. PT STANDS AT BEDSIDE TO AMBULATE TO WC W/FWW, PT REPORTS NO INSTABILITY, DIZZINESS, OR NAUSEA W/AMBULATION. PT STATES JUST GROGGY. PT TO PASSENGER SIDE OF VEHICLE VIA BY MITUL FISHER. ALL BELONGINGS IN PT POSSESSION. PT DEMONSTRATES CORRECT USAGE OF INCENTIVE SPIROMETER X1. CRYO CUFF REFILLED, ICE PACK, AND URINAL PROVIDED. PT AND PT STATE NO FURTHER NEEDS OR QUESTIONS AT THIS TIME.
--- NOTE | 2025-09-01 11:40 | NUR ---
PT ARRIVES TO DS FROM PACU VIA STRETCHER. PT REPORTS PAIN TOLERABLE AT THIS TIME. AT BEDSIDE, PRESENT FOR REPORT WITH LUIS FISHER. PT ABLE TO MOVE RLE AND FEEL SENSATION TO TOES, BUT LLE NUMBNESS FROM PAREKH DOWN. SURGICAL SITE VISUALIZED. CALL LIGHT WITHIN REACH, PT STATES NO FURTHER NEEDS OR QUESTIONS AT THIS TIME. PT TOLERATING APPLESAUCE AND SWATI CRACKERS WITHOUT DIFFICULTY SWALLOWING OR ONSET OF NAUSEA.
--- NOTE | 2025-09-01 12:22 | NUR ---
IN PT ROOM FOR PAIN ASSESSMENT. PT REPORTS PAIN REMAINS TOLERABLE AT THIS TIME. PT RESTING W/EYES CLOSED BUT RESPONSIVE TO VERBAL STIMULI AT THIS TIME. PT STATES NO NEEDS OR QUESTIONS AT THIS TIME. CALL LIGHT WITHIN REACH. PT AT BEDSIDE. PT TOLERATED ALL ORALS WITHOUT ONSET OF NAUSEA.
[2025-09-01 12:49] VITALS: BP 108/72
--- NOTE | 2025-09-01 12:57 | NUR ---
09/01/25 Perla Dominguez 1058- PT ARRIVES TO PACU, SEMI CONTEH POSITION, AWAKE BUT DROWSY. LR INFUSING TO LFA IV. O2 AT 6L PER MASK, BREATHING EVEN AND NON LABORED. PT FEELS LIKE HE NEEDS TO BE MOVED UP IN THE BED. MOVED BY DRAWSHEET AND PT REPORTS MORE COMFORTABLE. ABD SOFT, NON DISTENDED. [address] TO LEFT HIP, UPPER INCISION WITH SMALL AMOUNT OF SHADOWING. XRAY CALLED TO PACU. PT ABLE TO ROTATE RIGHT LEG SOME, BUT REPORTS BOTH NUMB. MAXIME HOSE AND FOOT PUMPS PLACED, ALL MONITORS IN PLACE. 1101- O2 MASK FALLING OFF, MOVED TO ROOM AIR. PT REMAINS AWAKE BUT DROWSY. 1111- WATER PROVIDED TO PT PER PT REQUEST, TOLERATING WELL. 1118- XRAY AT BEDSIDE. 1120- PT MEDICATED WITH FENTANYL 25 MCG FOR 6/10 PAIN. 1130- PT REPORTS PAIN IS TOLERABLE, CRYO CUFF IN PLACE. PLAN TO RETURN TO DAY SURGERY. 1140- PT BACK TO ROOM IN DAY SURGERY, AWAKE BUT DROWSY. CONTINUES TO BE ABLE TO ROTATE RIGHT LEG BUT NOTHING IN THE LEFT. AT BEDSIDE, REPORT TO Dexter HOLLOWAY RN AT BEDSIDE. CARE OF PT TURNED OVER AT THIS TIME.
--- NOTE | 2025-09-01 13:00 | NUR ---
ARCELIA Reyes/PHYSICAL THERAPY IN ROOM WITH PT. PT STATES GLUTEUS MUSCLES DO NOT FEEL COMPLETELY AWAKE YET. PT REPORTS MINOR DIZZINESS WITH VERTICAL EXERCISES. PT BACK IN BED. TXA ADMIN AT THIS TIME, IV SITE WNL. LUNCH ORDER PLACED. CALL LIGHT WITHIN REACH, PT AT BEDSIDE.
--- NOTE | 2025-09-01 13:30 | NUR ---
PT LUNCH HAS ARRIVED. PT SITTING UP IN BED EATING AT THIS TIME, ICE WATER WITHIN REACH. CALL LIGHT WITHIN REACH. PT REPORTS NO FURTHER QUESTIONS OR NEEDS AT THIS TIME.
[2025-09-01 14:07] VITALS: BP 104/64
--- NOTE | 2025-09-01 14:30 | NUR ---
PHYSICAL THERAPY IN ROOM (ARCELIA) TO WORK WITH PT AGAIN. PT STATES MINOR NUMBNESS STILL REMAINS IN GLUTES. PT OFF OF UNIT W/ ACCOMPANYING AND FRONT WHEEL WALKER IN HAND.
[2025-09-01] MEDS ORDERED: ACETAMINOPHEN 500 MG TAB PO SCH (15:00)
--- NOTE | 2025-09-01 15:00 | NUR ---
PT UNABLE TO URINE VOID. PT BLADDER SCANNED. VOLUME BETWEEN 611 AND 670 ML IN BLADDER. DODIE SANCHEZ CALLED AND UPDATED. VO FOR STRAIGHT CATH RECEIVED. PT AND PT EDUCATED ABOUT POC AND UPDATED, AGREEABLE AT THIS TIME. CALL LIGHT WITHIN REACH.
[2025-09-01 15:11] VITALS: BP 111/67
[2025-09-01] MEDS ORDERED: LIDOCAINE 2% VISCOUS 6 ML SYR TOP ONE (15:30)
--- NOTE | 2025-09-01 15:45 | NUR ---
PT STRAIGHT CATHED, STERILITY MAINTAINED. 325 ML EMPTIED FROM BLADDER. BOB CARE PERFORMED BY PT W/SAMANTHA. CALL LIGHT WITHIN REACH. PT DRINKING ICE WATER AT THIS TIME. PT REMAINS AT BEDSIDE.
--- NOTE | 2025-09-01 16:40 | NUR ---
PT BLADDER SCANNED D/T 1 HOUR FROM CATHETERIZATION. PT BLADDER SCAN SHOWS VOLUM OF 679 ML. ARCELIA W/PHYSICAL THERAPY WORKING W/PT, PT ATTEMPTS TO URINE VOID AND UNABLE TO. PT REQUESTS MORE WATER AND 15 MINUTES TO TRY AGAIN TO PEE. CALL LIGHT WITHIN REACH.
--- NOTE | 2025-09-01 17:20 | NUR ---
IN PT ROOM FOR STANDBY ASSIST TO RESTROOM. PT ABLE TO URINE VOID 700 ML OF CLEAR/YELLOW URINE. GAIT REMAINS STEADY W/FWW. PT BACK TO BED AND WAITING FOR ON EDUCATION W/GETTING DRESSED. CALL LIGHT WITHIN REACH, ANCEF ALMOST DONE INFUSION VIA IV. PT REPORTS NO FURTHER NEEDS OR QUESTIONS AT THIS TIME.
[2025-09-01 17:39] VITALS: BP 118/70
[2025-09-01] MEDS ORDERED: SENNOSIDES 1 TAB PO SCH (21:00)
[2025-09-02] MEDS ORDERED: DICLOFENAC SOD 75 MG TABEC PO SCH (08:00)
[2025-09-02] MEDS ORDERED: ASPIRIN 325 MG TAB PO SCH (08:00)
--- NOTE | 2025-09-02 08:20 | OR ---
[facility] [address] [place], [place] [address] Signed DATE OF OPERATION: 09/01/2025 SURGEON: Bianca Ruth MD PREOPERATIVE DIAGNOSIS: Degenerative joint disease, left hip. POSTOPERATIVE DIAGNOSIS: Degenerative joint disease, left hip. PROCEDURE PERFORMED: Left total hip arthroplasty [employer] SCOUT: Katarina Dent PA-C. Katarina was present and critical for all portions of procedure. ANESTHESIA: Spinal. BLOOD LOSS: 200 mL. IMPLANTS: Brittney Insignia size 6 high offset with a 54 mm cup and a -5 ceramic head. BRIEF HISTORY: Scotty is a 50-year-old gentleman with progressive worsening of osteoarthritis in both hips, left worse than right. Risks and benefits of operative treatment were discussed with him and he elected to proceed. DESCRIPTION OF PROCEDURE: Once consent was obtained, he was taken to the operating room. After adequate anesthesia he was placed on the operating room table. He was then placed in the right lateral decubitus position with axillary roll. All downside pressure points were well padded. The left hip was then prepped and draped in a standard sterile fashion. The computer navigation guide was then placed in the posterior half. The iliac crest through two separate stab incisions. Hip was then approached through standard anterior lateral incision, carried through skin and subcutaneous tissue. The IT band was divided longitudinally and the vastus lateralis and gluteus medius were divided along the Electronically Signed By: BIANCA RUTH MD 09/02/25 0820 PATIENT NAME: SCOTTY KENDALL OPERATIVE REPORT DATE OF : 71 REPORT #: [id number] PHYSICIAN: BIANCA RUTH MD PCP: TOYA HO PAC REPORT IS CONFIDENTIAL AND NOT TO BE RELEASED WITHOUT AUTHORIZATION [facility] [address] [place], [place] [address] Signed anterior femoral margin to the trochanteric tip. This was then continued down into the femoral neck and up to the acetabular rim. This sleeve was then subperiosteally elevated anteriorly around to the level of the lesser trochanter. The leg was then registered with the computer. The hip was dislocated and the femoral neck cut made one fingerbreadth above the lesser trochanter. The femoral head was passed off the table and saved for the patient. The periacetabular soft tissue was removed. The acetabulum was then registered with the computer and the 54 reamer was brought in. However, the computer did not recognize the position of the reamer. After multiple attempts, we then abandoned this and reamed the acetabulum with a 52 and then a 54 in 40 degrees of abduction and 15 degrees of anteversion. The cup was then impacted at the same angle. The cup was quite stable. The liner was then impacted until it was locked into position. Attention was then turned to the proximal femur which was opened using GigaCrete cutter, followed by the Amariey awl. It was then sequentially broached from a 1 to a 6 and the 6 was found to be well fitting. The high offset head and initially 0 then a -5 head length was then positioned. Hip was reduced, found to be good range of motion and good leg lengths. He had excellent stability. Hip was dislocated and the trials were removed. Final stem was impacted until it was well-seated, flushed with the cut. The -5 head was then impacted onto it after cleaning the trunnion. The hip was again reduced, taken through range of motion and found to be good. The wound was then copiously irrigated with one bottle of Surgiphor followed by normal saline. The capsule was then closed using #2 FiberWire. The vastus and IT band layers were closed independently using #2 Stratafix, subcutaneous tissue with 0 Stratafix and skin with 3-0 Stratafix. Wound was sealed with LiquiBand and dressed with an Acticoat-7 dressing. He was awakened, taken to recovery room in satisfactory condition. All sponge, needle, and instrument counts were correct. Bianca Ruth MD BA/JOVITAL /[id number] Copies: ~ Electronically Signed By: BIANCA RUTH MD 09/02/25819 PATIENT NAME: SCOTTY KENDALL OPERATIVE REPORT DATE OF : [birth year] REPORT #: [id number] PHYSICIAN: BIANCA RUTH MD PCP: TOYA HO PAC REPORT IS CONFIDENTIAL AND NOT TO BE RELEASED WITHOUT AUTHORIZATION
[2025-09-02] MEDS ORDERED: DULOXETINE HCL 30 MG CAP PO SCH (09:00)
== END 2025-09-01 18:00 | disposition home or self-care (01) ==
LOC: DS 06:58
PROVIDERS: ATTEND Specialist
PROC: 0SRB0JZ Replacement of Left Hip Joint with Synthetic Substitute, Open Approach (ICD-10-PCS; principal; 2025-09-01 09:15)
DX: M16.12 Unilateral primary osteoarthritis, left hip (principal); E78.00 Pure hypercholesterolemia, unspecified
CPT/HCPCS: 01214; 72170; 97110; 97116; 97161; 97530; A9270; C1713; C1776; J0131; J0688; J1885; J2003; J2250; J2405; J2704; J3010; J7121